=== PATIENT | female | born 1980 | race Caucasian/White ===

== ENCOUNTER 2018-07-29 21:08 | Emergency (ER) | payer OTHER ==
[2018-07-29] MEDS ORDERED: SODIUM CHLORIDE 0.9% 500 ML 500 ML IV STA (21:39)
[2018-07-29 21:57] LABS: Basophils # (A) 0.1 k/uL (0-0.2); Basophils % (A) 1 %; Eosinophils # (A) 0.2 k/uL (0-0.7); Eosinophils % (A) 1 %; HCT 41.3 % (34.0-46.0); HGB 13.6 gm/dL (11.4-16.0); Lymphocytes # (A) 3.1 k/uL (1.0-4.8); Lymphocytes % (A) 28 %; MCH 31.8 pg (25.0-35.0); MCV 96.5 fL (80.0-100.0); Mean Platelet Volume 6.5; Monocytes # (A) 0.5 k/uL (0-1.0); Monocytes % (A) 4 %; Neutrophils # (A) 7.1 k/uL (1.3-7.7); Neutrophils % (A) 65 %; Platelet Count 293 k/uL (150-450); RBC 4.28 m/uL (3.80-5.40); RDW 12.9 % (11.5-15.5)
[2018-07-29 21:59] LABS: Appearance,Urine Turbid (Clear); Bilirubin,Urine Negative (Negative); Blood,Urine Negative (Negative); Color,Urine Yellow; Glucose,Urine (UA) Negative (Negative); Ketones,Urine Negative (Negative); Leukocyte Esterase,Urine Large (Negative); Mucus,Urine Many /hpf; Nitrite,Urine Negative (Negative); Protein,Urine 1+ (Negative); RBC,Urine 23 /hpf (0-5); Squamous Epithelial Cell,Urine 71 /hpf (0-4); WBC,Urine 60 /hpf (0-5)
[2018-07-29 22:05] LABS: ALT 22 U/L (9-52); AST 19 U/L (14-36); Albumin 3.9 g/dL (3.5-5.0); Alkaline Phosphatase 63 U/L (38-126); Amylase 60 U/L (30-110); Anion Gap 7 mmol/L; Blood Urea Nitrogen 8 mg/dL (7-17); Carbon Dioxide 25 mmol/L (22-30); Chloride 106 mmol/L (98-107); Glucose 80 mg/dL (74-99); Lipase 60 U/L (23-300); Potassium 3.7 mmol/L (3.5-5.1); Sodium 138 mmol/L (137-145); Total Bilirubin 0.4 mg/dL (0.2-1.3); Total Protein 6.9 g/dL (6.3-8.2)
--- NOTE | 2018-07-29 23:30 | US ---
EXAM: US First Trimester, Transabdominal US , Transvaginal CLINICAL HISTORY: Pain TECHNIQUE: Real-time transabdominal and transvaginal obstetrical ultrasound of the maternal pelvis and a first trimester with image documentation. Transvaginal imaging was used for better evaluation of the fetus and adnexa. COMPARISON: No relevant prior studies available. FINDINGS: Gestation: Single intrauterine gestation with a crown-rump length of 1. 06 cm for an EGA of 7 weeks 1 day. Normal yolk sac noted. Positive heart tones 176 bpm Placenta/amniotic fluid: Cannot be adequately evaluated due to the early gestational age. Uterus/cervix: The uterus measures 8.5 x 5.0 x 6.3 cm Ovaries:. The right ovary measures 2.6 x 1.6 x 1.7 cm. The left ovary measures 2.6 x 1.7 x 1.6 cm. Normal symmetric blood flow left right ovary. Free fluid: No free fluid. IMPRESSION: Viable single intrauterine gestation 7 weeks 1 day by crown-rump length positive heart tones 176 bpm. Unremarkable appearance to the left and right ovary with normal symmetric blood flow
[2018-07-29] MEDS ORDERED: CEPHALEXIN 500MG STARTER PACK 4 CAP BTL PO STA (23:36)
--- NOTE | 2018-07-29 23:53 | ED ---
General Adult HPI - General Chief complaint: OB/Uterine Contractions Stated complaint: 6wks /cramping Time Seen by Provider: 07/29/18 21:25 Source: patient Mode of arrival: ambulatory Limitations: no limitations - History of Present Illness Initial comments: 38-year-old female patient presents to the emergency department today for evaluation of pelvic cramping. Patient states this started earlier in the day today. Patient states she is approximately 6 weeks . She did have ultrasound confirming intrauterine . Patient does have an IUD in place at this time. She denies any abnormal vaginal bleeding or discharge. Denies a ny low back pain. Denies any fever or chills. She denies constipation, diarrhea, nausea, or vomiting. Patient states she has not followed up with [employer] at this time because her plan is to terminate the . Patient denies any recent rash, shortness breath, chest pain, diarrhea, constipation, back pain, numbness, tingling, dizziness, weakness, hematuria, dysuria, urinary urgency, urinary frequency, headache, visual changes, or any other complaints. - Related Data Previous Rx's Medication Instructions Recorded Cephalexin [Keflex] 500 mg PO Q6H #28 cap 07/29/18 Allergies Allergy/AdvReac Type Severity Reaction Status Date / Time No Known Allergies Allergy Verified 07/29/18 21:22 Review of Systems ROS Statement: Those systems with pertinent positive or pertinent negative responses have been documented in the HPI. ROS Other: All systems not noted in ROS Statement are negative. Past Medical History Past Medical History: No Reported History History of Any Multi-Drug Resistant Organisms: None Reported Additional Past Surgical History / Comment(s): D'c. dental surgery. cyst removed from left thumb. Past Psychological History: No Psychological Hx Reported Smoking Status: Current every day smoker Past Alcohol Use History: None Reported Past Drug Use History: None Reported General Exam Limitations: no limitations General appearance: alert, in no apparent distress, other (Physical well- developed, well-nourished adult female patient in no acute distress. Vital signs upon presentation are temperature 98.6F, pulse 94, respiration 16, blood pressure 114/76, pulse ox 100% on room air.) Eye exam: Present: normal appearance, PERRL, EOMI. Absent: scleral icterus, conjunctival injection, periorbital swelling ENT exam: Present: normal exam, normal oropharynx, mucous membranes moist Respiratory exam: Present: normal lung sounds bilaterally. Absent: respiratory distress, wheezes, rales, rhonchi, stridor Cardiovascular Exam: Present: regular rate, normal rhythm, normal heart sounds. Absent: systolic murmur, diastolic murmur, rubs, gallop, clicks GI/Abdominal exam: Present: soft, tenderness (Suprapubic tenderness), normal bowel sounds. Absent: distended, guarding, rebound, rigid Neurological exam: Present: alert, oriented X3, CN II-XII intact Psychiatric exam: Present: normal affect, normal mood Skin exam: Present: warm, dry, intact, normal color. Absent: rash Course Vital Signs 07/29/18 07/29/18 07/30/18 21:20 23:18 00:06 Temperature 98.6 F 98.2 F 98.3 F Pulse Rate 94 84 85 Respiratory 16 20 18 Rate Blood Pressure 114/76 95/62 97/65 O2 Sat by Pulse 100 98 97 Oximetry Medical Decision Making - Medical Decision Making 38-year-old female patient presents to the emergency department today for evaluation of pelvic cramping. She is 7 weeks 1 day confirmed by ultrasound. Labs reviewed and are unremarkable. Patient has satisfactory hCG level. I did review the ultrasound report which showed a viable intrauterine , note was made of the intrauterine device. I did discuss this with the parking enforcement technician states that she did see the IUD in the lower uterine segment extending down to the cervix. I did discuss the case with my attending physician Dr. Hester who feels it appropriate to leave the IUD in place at this time until patient follows up with the OBGYN. Patient's plan is to terminate the , we did discuss risks of leaving the IUD in place should she change her mind, she states "I am 100% sure I am terminating" and agrees to leave the IUD in place. She is instructed to follow-up with gynecology as soon as possible. She is given strict return precautions. Return parameters discussed in detail she verbalizes understanding and agrees with this plan. - Lab Data Result diagrams: 07/29/18 21:45 07/29/18 21:45 Lab Results 07/29/18 07/29/18 07/29/18 Range/Units 21:32 21:45 21:45 WBC 11.0 H (3.8-10.6) k/uL RBC 4.28 (3.80-5.40) m/uL Hgb 13.6 (11.4-16.0) gm/dL Hct 41.3 (34.0-46.0) % MCV 96.5 (80.0-100.0) fL MCH 31.8 (25.0-35.0) pg MCHC 33.0 (31.0-37.0) g/dL RDW 12.9 (11.5-15.5) % Plt Count 293 (150-450) k/uL Neutrophils % 65 % Lymphocytes % 28 % Monocytes % 4 % Eosinophils % 1 % Basophils % 1 % Neutrophils # 7.1 (1.3-7.7) k/uL Lymphocytes # 3.1 (1.0-4.8) k/uL Monocytes # 0.5 (0-1.0) k/uL Eosinophils # 0.2 (0-0.7) k/uL Basophils # 0.1 (0-0.2) k/uL Sodium 138 (137-145) mmol/L Potassium 3.7 (3.5-5.1) mmol/L Chloride 106 (98-107) mmol/L Carbon Dioxide 25 (22-30) mmol/L Anion Gap 7 mmol/L BUN 8 (7-17) mg/dL Creatinine 0.45 L (0.52-1.04) mg/dL Est GFR (CKD-EPI)AfAm >90 (>60 ml/min/1.73 sqM) Est GFR (CKD-EPI)NonAf >90 (>60 ml/min/1.73 sqM) Glucose 80 (74-99) mg/dL Calcium 9.0 (8.4-10.2) mg/dL Total Bilirubin 0.4 (0.2-1.3) mg/dL AST 19 (14-36) U/L ALT 22 (9-52) U/L Alkaline Phosphatase 63 (38-126) U/L Total Protein 6.9 (6.3-8.2) g/dL Albumin 3.9 (3.5-5.0) g/dL Amylase 60 (30-110) U/L Lipase 60 (23-300) U/L HCG, Quant 61700.0 mIU/mL Urine Color Yellow Urine Appearance Turbid H (Clear) Urine pH 6.0 (5.0-8.0) Ur Specific [place] 1.020 (1.001-1.035) Urine Protein 1+ H (Negative) Urine Glucose (UA) Negative (Negative) Urine Ketones Negative (Negative) Urine Blood Negative (Negative) Urine Nitrite Negative (Negative) Urine Bilirubin Negative (Negative) Urine Urobilinogen 3.0 (<2.0) mg/dL Ur Leukocyte Esterase Large H (Negative) Urine RBC 23 H (0-5) /hpf Urine WBC 60 H (0-5) /hpf Ur Squamous Epith Cells 71 H (0-4) /hpf Urine Mucus Many H (None) /hpf - Radiology Data Radiology results: report reviewed Transvaginal and transabdominal ultrasound of the fetus was obtained. Report was reviewed in its entirety. Impression by Dr. Urban shows viable single intrauterine gestation measuring several weeks 1 day by crown-rump length. Positive heart tones at 176. Unremarkable appearance of left right ovary with normal symmetric blood flow. Disposition Clinical Impression: Abdominal pain during , Urinary tract infection Disposition: HOME SELF-CARE Condition: Good Instructions (If sedation given, give patient instructions): Urinary Tract Infection in Women (ED), Abdominal Pain in (ED) Additional Instructions: Follow-up with gynecological specialist as soon as possible. Complete antibiot ic prescription for urinary tract infection. Return to the emergency department immediately for any new, worsening, or concerning symptoms. Prescriptions: Cephalexin [Keflex] 500 mg PO Q6H #28 cap Is patient prescribed a controlled substance at d/c from ED?: No Referrals: Ana Lancaster DO [Primary Care Provider] - 1-2 days Time of Disposition: 23:53
[2018-07-30 00:07] VITALS: BP 97/65; PULSE 85; RESP 18; TEMP 98.3
== END 2018-07-30 00:07 | disposition home or self-care (01) ==
LOC: EC 21:08
DX: O23.41 Unspecified infection of urinary tract in pregnancy, first trimester (principal); O26.31 Retained intrauterine contraceptive device in pregnancy, first trimester; O99.331 Smoking (tobacco) complicating pregnancy, first trimester; F17.200 Nicotine dependence, unspecified, uncomplicated; Z3A.01 Less than 8 weeks gestation of pregnancy
CPT/HCPCS: 36415; 76801; 76817; 80053; 81001; 82150; 83690; 84702; 85025; 87086; 96360; 99284

== ENCOUNTER → 2018-08-21 | Outpatient (CLI) | payer OTHER ==
--- NOTE | 2018-08-21 11:37 | US ---
EXAMINATION TYPE: US transvaginal DATE OF EXAM: 08/21/2018 COMPARISON: NONE CLINICAL HISTORY: T83.9XXA unspecified complication of genitourinary. IUD removed 3 weeks ago, patien t states might still have part of left in there, 4, para 2, miscarriage 1, 1, histor y of D&C TECHNIQUE: Transvaginal exam only per ordering physician. Date of LMP: May 2018 EXAM MEASUREMENTS: Uterus: 7.7 x 4.0 x 5.1 cm Endometrial Stripe: 1.0 cm Right Ovary: 3.7 x 2.5 x 2.7 cm Left Ovary: 2.7 x 2.0 x 1.6 cm 1. Uterus: anteverted, multiple echogenic foci seen within the region of the endometrium 2. Endometrium: small amount of fluid seen, 0.5cm echogenic focus seen within JARRED portion of endomet rial canal 3. Right Ovary: 1.6 x 1.4 x 1.5cm cystic area 4. Left Ovary: wnl 5. Bilateral Adnexa: wnl 6. Posterior cul-de-sac: wnl IMPRESSION: Indeterminate echogenic foci along the endometrium, small amount of fluid also noted jimmie g the endometrium.
--- NOTE | 2018-08-21 12:59 | XR ---
EXAMINATION TYPE: XR abdomen complete w decub DATE OF EXAM: 08/21/2018 HISTORY: Pain. Technique: 3 views of the abdomen are submitted. Comparison: None. Findings: There is no convincing evidence of pneumoperitoneum. The Bowel gas pattern is nonspecific and nonobstructive. No sizable air-fluid levels are seen. No mass effects are noted. No renal calcifications are identified. IMPRESSION: 1. Nonspecific nonobstructive bowel gas pattern
== END | disposition home or self-care (01) ==
LOC: RADUSWWP 10:42
PROVIDERS: ATTEND Obstetrics & Gynecology
DX: R93.89 Abnormal findings on diagnostic imaging of other specified body structures (principal); T83.9XXA Unspecified complication of genitourinary prosthetic device, implant and graft, initial encounter
CPT/HCPCS: 74021; 76830

== ENCOUNTER → 2018-09-15 | Outpatient (CLI) | payer OTHER ==
[2018-09-15 15:29] LABS: Basophils # (A) 0.1 k/uL (0-0.2); Basophils % (A) 1 %; Eosinophils # (A) 0.2 k/uL (0-0.7); Eosinophils % (A) 2 %; HCT 41.3 % (34.0-46.0); HGB 13.1 gm/dL (11.4-16.0); Lymphocytes # (A) 2.9 k/uL (1.0-4.8); Lymphocytes % (A) 35 %; MCHC 31.7 g/dL (31.0-37.0); MCV 97.9 fL (80.0-100.0); Mean Platelet Volume 6.9; Monocytes # (A) 0.3 k/uL (0-1.0); Monocytes % (A) 4 %; Neutrophils # (A) 4.7 k/uL (1.3-7.7); Neutrophils % (A) 57 %; Platelet Count 285 k/uL (150-450); RBC 4.22 m/uL (3.80-5.40); RDW 12.6 % (11.5-15.5); WBC 8.2 k/uL (3.8-10.6)
== END ==
LOC: LABPAT 14:15
PROVIDERS: ATTEND Obstetrics & Gynecology
DX: Z01.812 Encounter for preprocedural laboratory examination (principal)
CPT/HCPCS: 85025

== ENCOUNTER 2018-09-25 05:45 | Day surgery (SDC) | payer OTHER ==
[2018-09-20 15:45] VITALS: BMI 16.8
--- NOTE | 2018-09-22 06:50 | P.HPOB ---
History of Present Illness H&P Date: 09/22/18 Chief Complaint: Retained portion of IUD, family planning This patient is a pleasant 38-year-old 3 para 2 female who had a ParaGard IUD in for a long period of time and subsequently became . Patient was found to have an intrauterine and elected to terminate this . She is going to outside family planning clinic and while they were removing her IUD they broke off one of the arms. Patient subsequently called me for further treatment and also requesting permanent sterilization. I did order an ultrasound which suggested a residual part of the IUD in the lower part of the uterus. Patient and I did discuss control options and she wished to proceed with tubal cauterization at the time of her IUD portion removal. Patient therefore presents for laparoscopic bilateral fallopian tube cauterization and hysteroscopy with D&C and removal of IUD portion. Past Medical History Additional Past Medical History / Comment(s): ARNOLD CHIARI MALFORMATION, HEADACHES, LOW BP, OCCASIONAL NUMBNESS IN FINGERS & HIPS., Patient also has vitiligo and ADHD. History of Any Multi-Drug Resistant Organisms: None Reported Additional Past Surgical History / Comment(s): D & C X2. dental surgery. cyst removed from left thumb. Past Anesthesia/Blood Transfusion Reactions: Motion Sickness, Postoperative Nausea & Vomiting (PONV) Additional Past Anesthesia/Blood Transfusion Reaction / Comment(s): SEVERE PONV Past Psychological History: ADD/ADHD Smoking Status: Current every day smoker Past Alcohol Use History: Rare Additional Past Alcohol Use History / Comment(s): SMOKES 1/2 PPD, SMOKING FOR 15 YEARS OR MORE. Past Drug Use History: None Reported - Past Family History Mother Family Medical History: No Reported History Medications and Allergies Home Medications Medication Instructions Recorded Confirmed Type Ibuprofen [Motrin] 800 mg PO DIRECTED PRN 09/20/18 09/20/18 History Vitamin C/Biotin [Hair, Skin and 1 tab PO DAILY 09/20/18 09/20/18 History Nails] Allergies Allergy/AdvReac Type Severity Reaction Status Date / Time latex Allergy Unknown Swelling Verified 09/20/18 15:23 Exam - OBG Physical Exam Abdomen: bowel sounds normal, no diffuse tenderness, no bruit present, no guarding noted, no hepatomegaly, no splenomegaly, no mass Vulva: both: normal Vagina: normal moisture, no discharge Cervix: no lesion, no discharge Uterus: normal size, normal contour Adnexa: both: normal Results Transvaginal ultrasound on August 21 showed a echogenic focus that was 5 mm in size in the lower uterine segment consistent with probable retained IUD arm. Assessment and Plan Assessment: This is a pleasant 38-year-old 3 para 2 female who is status post IUD removal an elective at outside clinic with retained arm of an IUD. Patient is requesting tubal sterilizations at time of her IUD removal. Patient had a long discussion about tubal ligation/cauterization the fact that this is considered permanent, however there is a failure rate of approximately 5 or less per thousand procedures done. She understands if she does become she has a 50% chance of a tubal or ectopic . Patient also understands that laparoscopic surgery and apparently has risks including risks of infection, bleeding, possible injury bowel, bladder, vessels, and/or other organs and this could result in needing further surgeries. She also understands this is considered an elective procedure and alternatives do exist for control. Plan at this time is laparoscopic bilateral fallopian tube cauterization with hysteroscopy and D&C with IUD arm removal. All the patient's questions are answered written consent is obtained. (1) Family planning Status: Acute Code(s): Z30.09 - ENCOUNTER FOR OTH GENERAL CNSL AND ADVICE ON CONTRACEPTION SNOMED Code(s): 665424805 (2) IUD complication Status: Acute Code(s): T83.9XXA - UNSP COMPLICATION OF GENITOURINARY PROSTH DEV/GRFT, INIT SNOMED Code(s): 944461672
[~2018-09-25 05:45] MED LIST: Pre Op ABX Message 1 EACH MISC MISCELLANE ONE
[2018-09-25] MEDS ORDERED: ONDANSETRON 4 MG/2 ML VIAL IVP ONE (06:00)
[2018-09-25] MEDS ORDERED: HYDROmorphone 0.5 MG/0.5 ML SYRINGE IVP PRN (06:00)
[2018-09-25] MEDS ORDERED: SCOPOLAMINE 1.5MG/72HR PATCH TRANSDERM ONE (06:00)
[2018-09-25] MEDS ORDERED: LIDOCAINE 1% 20 ML VIAL (10MG/ML) FOR IV START INTRADERMA PRN (06:00)
[2018-09-25] MEDS ORDERED: DEXAMETHASONE SOD PHOSPHATE 10 MG/ML 1 ML VIAL IV ONE (06:00)
[2018-09-25] MEDS ORDERED: LACTATED RINGERS 1,000 ML IV SCH (06:00)
[2018-09-25] MEDS ORDERED: SUCCINYLCHOLINE CHLORIDE 100 MG/5 ML SYR IV ONE (06:53)
[2018-09-25] MEDS ORDERED: fentaNYL (PF) 50 MCG/ML 2 ML AMP ONE (06:53)
[2018-09-25] MEDS ORDERED: MIDAZOLAM 2 MG/2 ML VIAL ONE (06:53)
[2018-09-25] MEDS ORDERED: KETOROLAC 30 MG/ML 1 ML VIAL ONE (06:53)
[2018-09-25] MEDS ORDERED: ePHEDrine SULFATE/0.9% NACL/PF 50 MG/5 ML SYRINGE IV ONE (06:53)
[2018-09-25] MEDS ORDERED: PROPOFOL 10 MG/ML 20 ML VIAL IV ONE (06:53)
[2018-09-25] MEDS ORDERED: LIDOCAINE 1% INJ 10MG/ML (20 ML MDV) ONE (06:53)
[2018-09-25] MEDS ORDERED: BUPIVACAINE (PF) 0.5% 30 ML VIAL SQ ONE (07:21)
--- NOTE | 2018-09-25 07:53 | P.OP ---
Date of Procedure: 09/25/18 Preoperative Diagnosis: #1: Multi parity desires permanent sterilization. #2: Retained IUD portion Postoperative Diagnosis: Same, no retained IUD Procedure(s) Performed: #1: Laparoscopic bilateral fallopian tube cauterization. #2: Hysteroscopy #3: Dilation and curettage Anesthesia: NARCISA Surgeon: Jeronimo So Estimated Blood Loss (ml): 15 Urine output (ml): 25 Pathology: other (Uterine curettings) Condition: stable Disposition: PACU Indications for Procedure: Please see dictated H&P for intimate details of this patient's admission. Brief summary is a pleasant 38-year-old multiparous patient who is presenting for permanent sterilization and also for removal of suspected retained portion of an IUD. Patient understands a tubal ligation is considered permanent although there is a failure rate of approximately 5 or less per thousand, if she did become she understands is a 50% chance of a tubal or an ectopic . Patient also understands this surgery and apparently has risks including risks of infection, bleeding, possible injury bowel, bladder, vessels, and/or other organs. Patient her stands is considered elective and alternatives exist to the surgery. All the patient's questions are answered written consent is obtained. Operative Findings: This patient is a normal appearing uterus tubes and ovaries. This patient had a normal intrauterine endocervical canal without evidence of retained IUD. Description of Procedure: This patient is taken to the operating room where she is laid in the supine position. She subsequent undergoes general endotracheal anesthesia without incident. With adequate level of anesthesia she's placed in dorsal lithotomy position. She has a vaginal perineal abdominal prep and drape. First good on below placed a weighted speculum posterior vagina and the anterior lip of the cervix was grabbed with an Allis clamp. A large acorn cannula is gently placed into the endocervix and attached to the Allis clamp. A latex free catheter is then placed in the bladder and attached to the Allis clamp. I then changed my gloves and go up above. I make a 10 mm infraumbilical incision. Through this a 10 mm bladed lists optical trochars placed. With peritoneal placement confirmed pneumoperitoneum was then created to 12 mm of carbon dioxide gas. A second incision is made 2 finger breaths above the symphysis pubis 5 mm in length. Thr ough this a 5 mm trochars placed under direct visualization. Using a blunt probe I visualize the uterus tubes and ovaries pelvis and all appears normal. Using bipolar cautery I then grasped the left fallopian tube approximately 4 cm from its cornual insertion and a 2 cm segment of tube was completely cauterized as demarcated by the volt meter. A similar technique is done on the right side with similar results. With this done the part of the procedure is ended. The lower trochars removed good hemostasis is noted. Pneumoperitoneum was reduced and the upper trochars removed. Incisions are then closed using a 3-0 Vicryl interrupted fashion. Steri-Strips sterile dressing were then applied. I infiltrate each incision with half percent Marcaine for postoperative pain control. Again good on below and the acorn cannula is removed. The uterus is then gently sounded to approximately 8 cm. Serial dilation is done of the endocervix to allow the hysteroscope into the uterine cavity hysteroscopy the entire endocervix and uterine cavity is then carefully and there is no evidence of any retained portion of the IUD. With this done the hysteroscope was removed. Gentle dilation is then more to allow a curette in the uterine cavity and it gentle 4 quadrant curettage is done again with no evidence of any abnormality objects or tissue. This tissue was sent to pathology. At this point the procedure is ended. The weighted speculum Allis clamps removed. All counts are correct 3. There are no complications. Patient is awakened from anesthesia and taken recovery room in satisfactory condition.
[2018-09-25 08:03] VITALS: TEMP 97.6
[2018-09-25 08:35] VITALS: RESP 18
[2018-09-25 08:54] VITALS: BP 104/69; PULSE 75
== END 2018-09-25 09:14 | disposition home or self-care (01) ==
LOC: OR 05:45
PROVIDERS: ATTEND Obstetrics & Gynecology
DX: Z30.2 Encounter for sterilization (principal); F17.210 Nicotine dependence, cigarettes, uncomplicated; Z79.1 Long term (current) use of non-steroidal anti-inflammatories (NSAID); Z91.040 Latex allergy status; T83.4 Mechanical complication of other prosthetic devices, implants and grafts of genital tract
CPT/HCPCS: 81025; 88305; 58670; 58558; J2250; J1100; J2405; J2001; J3010; J1885; J0330; J2704

== ENCOUNTER → 2020-10-29 | Outpatient (CLI) | payer OTHER ==
--- NOTE | 2020-10-31 11:03 | MM ---
Reason for exam: screening (asymptomatic). Baseline mammogram. History: Family history of breast cancer in aunt at age 50. Physical Findings: Nurse did not find any significant physical abnormalities on exam. MG Screening Mammo w CAD Bilateral CC and MLO view(s) were taken. The breast tissue is extremely dense which could obscure a lesion on mammography. ASSESSMENT: Negative, BI-RAD 1 RECOMMENDATION: Routine screening mammogram of both breasts in 1 year.
== END | disposition home or self-care (01) ==
LOC: RADMAMWWP 14:19
PROVIDERS: ATTEND Family Medicine
DX: Z12.31 Encounter for screening mammogram for malignant neoplasm of breast (principal); Z80.3 Family history of malignant neoplasm of breast
CPT/HCPCS: 77067